=== PATIENT | female | born 1955 | race Caucasian/White ===

== ENCOUNTER 2017-02-23 14:31 | Emergency (ER) | payer BC, OTHER ==
[~2017-02-23] VITALS: Ht 157.5 cm; Wt 99.8 kg
[2017-02-23 17:44] VITALS: BP 130/82
== END 2017-02-23 17:45 | disposition home or self-care (01) ==
LOC: M.ERS 14:31
DX: M71.21 Synovial cyst of popliteal space [Baker], right knee (principal); J45.909 Unspecified asthma, uncomplicated; E78.00 Pure hypercholesterolemia, unspecified; Z86.79 Personal history of other diseases of the circulatory system; Z88.5 Allergy status to narcotic agent; Z88.2 Allergy status to sulfonamides; Z88.4 Allergy status to anesthetic agent